=== PATIENT | female | born 1960 | race Caucasian/White ===

== ENCOUNTER 2023-01-10 23:25 | Emergency (ER) | payer OTHER, SELFPAY ==
[2023-01-10 23:32] VITALS: BP 132/62; PULSE 81; RESP 30; TEMP 36.6; O2SAT 99; BMI 64.0
[2023-01-10 23:33] VITALS: BP 132/62
--- NOTE | 2023-01-10 23:35 | ED_ITS ---
HPI - General Adult General Chief complaint: Shortness of Breath/Dyspnea Stated complaint: SHORTNESS OF BREATH Time Seen by Provider: 01/10/23 23:35 Source: patient Mode of arrival: ambulance Limitations: no limitations History of Present Illness HPI narrative: Patient presents to emergency department complaining of shortness of breath. Patient states she's been short of breath for the last 3 days. She has history of asthma and chronic obstructive pulmonary disease has been using nebulized treatments at home with some relief. The patient uses CPAP at home. She has been using it. She is not taking any steroids currently. She is normally on 4 L nasal cannula at home. Her claim rep is at [facility]. Patient states she has a history of deep vein thrombosis and pulmonary embolisms. She had a [place] filter that was removed 3 weeks ago. Patient denies any lower extremity edema, or cramping. She is on xarelto. She has not missed any doses. denies any fever, chills. She denies any chest pain. He has not had to increase her oxygen via nasal cannula. she had a cough but nonproductive. Patient also has a history of congestive heart failure. Related Data Home Medications Medication Instructions Recorded Confirmed aripiprazole 5 mg tablet 5 mg PO DAILY 01/10/23 01/10/23 atorvastatin 80 mg tablet 40 mg PO DAILY 01/10/23 01/10/23 budesonide-formoterol HFA 80 2 puff inhalation Q12H 01/10/23 01/11/23 mcg-4.5 mcg/actuation aerosol inhaler (Symbicort) dulaglutide 3 mg/0.5 mL 3 mg subcut .weekly 01/10/23 01/11/23 subcutaneous pen injector ([facility]) furosemide 40 mg tablet 40 mg PO BID 01/10/23 01/11/23 insulin glargine 100 unit/mL (3 50 unit subcut BID 01/10/23 01/11/23 mL) subcutaneous pen (Lantus Solostar U-100 Insulin) insulin lispro 100 unit/mL subcut 01/10/23 subcutaneous pen (Humalog KwikPen (U-100) Insulin) levothyroxine 100 mcg tablet 100 mcg PO DAILY 01/10/23 01/11/23 losartan 25 mg tablet 25 mg PO DAILY 01/10/23 01/10/23 metolazone 5 mg tablet 5 mg PO DAILY 01/10/23 01/11/23 metoprolol succinate 100 mg 100 mg PO Q12H 01/10/23 01/11/23 tablet,extended release 24 hr pantoprazole 40 mg tablet,delayed 40 mg PO DAILY 01/10/23 01/11/23 release potassium chloride 20 mEq 80 meq PO BID 01/10/23 01/11/23 tablet,extended release(part/cryst) (Klor-Con M) pregabalin 50 mg capsule 50 mg PO BID 01/10/23 01/11/23 rivaroxaban 20 mg tablet (Xarelto) 20 mg PO DAILY 01/10/23 01/10/23 spironolactone 25 mg tablet 25 mg PO DAILY 01/10/23 01/11/23 tramadol 50 mg tablet 50 mg PO BEDTIME PRN pain 01/10/23 01/11/23 venlafaxine 150 mg 150 mg PO DAILY 01/10/23 01/10/23 capsule,extended release 24 hr Previous Rx's Medication Instructions Recorded levofloxacin 750 mg tablet 750 mg PO DAILY 7 days #7 tabs 01/11/23 prednisone 50 mg tablet 50 mg PO DAILY 5 days #5 tabs 01/11/23 Allergies Allergy/AdvReac Type Severity Reaction Status Date / Time metformin Allergy Unknown Verified 01/10/23 23:35 nifedipine [From Procardia] Allergy Unknown Verified 01/10/23 23:35 red dye Allergy Unknown Verified 01/10/23 23:35 Review of Systems ROS Status of ROS 10 or more systems reviewed and unremarkable except as noted in history and below [facility] Social History Smoking status: Never smoker Exam Narrative Exam Narrative: Nurses notes and vital signs reviewed and patient is hypoxic. Oxygen saturation 74 percent on 4 L nasal cannula on reevaluation. General: Nontoxic, In mild respiratory distress. Skin: Warm, dry, no pallor noted. perioral cyanosis, no Rash Head: Normocephalic, atraumatic. Neck: Supple, non-tender. Eye: Pupils are equal, round and EOMI. No scleral icterus. Ears, Nose, Mouth, and Throat: TM clear, no posterior oropharynx erythema or nasal mucosal hypertrophy, uvula is mid-line Oral mucosa is moist Cardiovascular: paced rhythm without murmur, gallop or rub. Respiratory: mild respiratory distress. Lungs Lateral diffuse rhonchi and expiratory wheezes. Chest Wall: no tenderness Back: No midline thoracic or lumbar vertebral tenderness. No CVA tenderness Musculoskeletal: normal ROM, no calf or popliteal tenderness, no lower extremity edema/swelling GI: Obese, Abdomen is soft, non-distended. Normal bowel sounds. No masses appreciated. No tenderness to palpation. No rebound, guarding, or rigidity noted. Neurological: A&O x4. No cranial nerve dysfunction observed. No truncal ataxia. Moves all extremities. Sensation intact. Psychiatric: Cooperative and interactive. anxious Constitutional Vital Signs, click to edit/add: Last Vital Signs Temp 98 F 01/10/23 23:32 Pulse 91 H 01/11/23 05:53 Resp 44 H 01/11/23 05:53 BP 140/82 H 01/11/23 06:05 Pulse Ox 95 01/11/23 05:53 O2 Del Method BIPAP 01/11/23 06:23 O2 Flow Rate 5 01/11/23 03:58 FiO2 100 01/11/23 05:53 Course Vital Signs Vital signs: Vital Signs Temperature 98 F 01/10/23 23:32 Pulse Rate 81 01/10/23 23:32 Respiratory Rate 30 H 01/10/23 23:32 Blood Pressure 132/62 H 01/10/23 23:32 Pulse Oximetry 99 01/10/23 23:32 Oxygen Delivery Method Nasal Cannula 01/10/23 23:32 Oxygen Delivery Flow Rate 4 01/10/23 23:32 Temperature 98 F 01/10/23 23:32 Pulse Rate 91 H 01/11/23 05:53 Respiratory Rate 44 H 01/11/23 05:53 Blood Pressure 140/82 H 01/11/23 06:05 Pulse Oximetry 95 01/11/23 05:53 Oxygen Delivery Method BIPAP 01/11/23 06:23 Oxygen Delivery Flow Rate 5 01/11/23 03:58 Fraction of Inspired Oxygen 100 01/11/23 05:53 Medical Decision Making MDM Narrative Medical decision making narrative: Patient was initially seen and evaluated by me. The patient was doing well on 4 L nasal cannula. She did not have any respiratory distress and was not cyanotic. The patient hadn't was given Solu-Medrol, a DuoNeb treatment and Levaquin IV. She was also given 2 g of magnesium. She rested she felt better and she did not want to be hospitalized. I discussed with the patient to stay in the hospital for IV antibiotics and steroids and she declined she states she felt so much better. As the patient was being wheeled to the car still on 4 L nasal cannula she decompensated when she was getting into her car she became cyanotic, anxious having respiratory distress they brought her back to the emergency department immediately her oxygen saturation was 74 percent. She was immediately placed on BiPAP. She felt better. ABG was obtained. I discussed intubation with the patient and she is asked if we could increase prolonged because she is not opposed to it 100 percent, but she wants to delay it as much as possible. Dmoinik worthington was given 1 mg of Ativan IV and we attempted to have the patient do a CTA because of her history of pulmonary embolism and she was not tolerating it as she will become very dyspneic and anxious any time you lay her flat. The patient was given 1 mg of Bumex. She had a plain x-ray which showed diffuse bilateral infiltrates versus pulmonary edema. The patient lactic acid was elevated. She was started on the sepsis protocol of normal saline at 30 ml/kilogram bolus, vancomycin and Zosyn. A repat ABG was obtained one hour after the patient was started on BiPAP with the settings 12 and 8 and FIO2- 90 percent. The patient's pH improved to 7.2, but it appeared to be a mixed gas. Patient's oxygen saturation reads best on her earlobe the patient has Raynauds. her oxygen sat on bipap remains 98% The patient was discussed with Dr. Stewart who advised that Dr. Casarez at the [facility] is out of town and she would not feel comfortable having to intubate the patient and managed event. She asked that we keep the patient in the emergency department at least another hour and repeat the ABG and if it continues to improve that she will feel more comfortable admitting the patient here. The patient is signed out at the end of my shift to Dr. Brown awaiting ABG repeat in one hour and discussing the patient with Dr. Stewart. Lab Data Lab results reviewed: Yes I reviewed the patient's lab results Labs: Lab Results 01/10/23 01/11/23 01/11/23 Range/Units 23:46 05:02 05:54 WBC 11.7 H (4.0-11.0) 10^3/uL RBC 4.14 L (4.20-5.40) 10^6/uL Hgb 10.1 L (12.0-16.0) g/dL Hct 33.7 L (36.0-48.0) % MCV 81.4 (81.0-99.0) fL MCH 24.4 L (26.7-34.0) pg MCHC 30.0 (29.9-35.2) g/dL RDW 17.5 H (11.0-15.0) % Plt Count 251 (150-450) 10^3/uL MPV 11.9 (9.5-13.5) fL Neut % (Auto) 55.0 (43.0-75.0) % Lymph % (Auto) 34.6 (20.5-60.0) % [place] % (Auto) 7.9 (1.7-12.0) % Eos % (Auto) 1.5 (0.9-7.0) % Baso % (Auto) 0.4 (0.2-2.0) % Neut # (Auto) 6.5 (1.4-6.5) 10^3/uL Lymph # (Auto) 4.1 H (1.2-3.8) 10^3/uL [place] # (Auto) 0.9 H (0.3-0.8) 10^3/uL Eos # (Auto) 0.2 (0.0-0.7) 10^3/uL Baso # (Auto) 0.1 (0.0-0.1) 10^3/uL Abs Immat Gran (auto) 0.07 H (0.00-0.03) 10^3/uL Imm/Tot Granulo (auto) 0.6 H (0.0-0.5) % PT (9.0-11.6) sec INR APTT (22.3-36.2) sec Puncture Site R radial ABG pH 7.025 L* (7.350-7.450) ABG pCO2 49.8 H (35.0-45.0) mmHg ABG pO2 314.0 H (80.0-100.0) mmHg ABG HCO3 13.0 L (22.0-26.0) mmol/L ABG O2 Saturation 99.8 % ABG Base Excess -17.9 L (-2.0-2.0) mmol/L Bryan Test Positive (POSITIVE) FiO2 100 % BiPAP 16/8 Sodium 141 (136-145) mmol/L Potassium 3.9 (3.5-5.1) mmol/L Chloride 106 (98-107) mmol/L Carbon Dioxide 25.9 (21.0-32.0) mmol/L Anion Gap 13.0 BUN 23.0 H (7.0-18.0) mg/dL Creatinine 1.11 H (0.55-1.02) mg/dL Est GFR ( Amer) >60 (>=60) Est GFR (Non-Af Amer) 50 L (>=60) BUN/Creatinine Ratio 20.7 Glucose 218 H (74-106) mg/dL Lactate 7.9 H* (0.4-2.0) mmol/L Calcium 8.6 (8.5-10.1) mg/dL Troponin I High Sens 9.1 (4.0-51.3) pg/mL NT-Pro-B Natriuret Pep 804.0 (<=900.0) pg/mL Adenovirus (PCR) (NOT DETECTE) C. pneumoniae DNA (PCR) (NOT DETECTE) Coronavirus Type OC43 (NOT DETECTE) Coronavirus Type HKU1 (NOT DETECTE) Coronavirus Type 229E (NOT DETECTE) Coronavirus Type NL63 (NOT DETECTE) Human Metapneumovir PCR (NOT DETECTE) M. pneumoniae (PCR) (NOT DETECTE) Parainfluenza PCR (NOT DETECTE) Parainfluenza 2 (PCR) (NOT DETECTE) Parainfluenza 3 (PCR) (NOT DETECTE) Parainfluenza 4 (PCR) (NOT DETECTE) RSV (RT-PCR) (NOT DETECTE) Entero/Rhino (PCR) (NOT DETECTE) SARS-CoV-2 (PCR) (NOT DETECTE) Bordetella pertussis (PCR) (NOT DETECTE) B parapertussis DNA PCR (NOT DETECTE) Influenza Type A (PCR) (NOT DETECTE) Influenza Type B (PCR) (NOT DETECTE) 01/11/23 01/11/23 01/11/23 Range/Units 06:15 06:39 06:55 WBC (4.0-11.0) 10^3/uL RBC (4.20-5.40) 10^6/uL Hgb (12.0-16.0) g/dL Hct (36.0-48.0) % MCV (81.0-99.0) fL MCH (26.7-34.0) pg MCHC (29.9-35.2) g/dL RDW (11.0-15.0) % Plt Count (150-450) 10^3/uL MPV (9.5-13.5) fL Neut % (Auto) (43.0-75.0) % Lymph % (Auto) (20.5-60.0) % [place] % (Auto) (1.7-12.0) % Eos % (Auto) (0.9-7.0) % Baso % (Auto) (0.2-2.0) % Neut # (Auto) (1.4-6.5) 10^3/uL Lymph # (Auto) (1.2-3.8) 10^3/uL [place] # (Auto) (0.3-0.8) 10^3/uL Eos # (Auto) (0.0-0.7) 10^3/uL Baso # (Auto) (0.0-0.1) 10^3/uL Abs Immat Gran (auto) (0.00-0.03) 10^3/uL Imm/Tot Granulo (auto) (0.0-0.5) % PT 12.1 H (9.0-11.6) sec INR 1.15 APTT 33.9 (22.3-36.2) sec Puncture Site Lr ABG pH 7.237 L* (7.350-7.450) ABG pCO2 46.7 H (35.0-45.0) mmHg ABG pO2 48.6 L (80.0-100.0) mmHg ABG HCO3 19.8 L (22.0-26.0) mmol/L ABG O2 Saturation 77.7 % ABG Base Excess -7.6 L (-2.0-2.0) mmol/L Bryan Test Positive (POSITIVE) FiO2 90 % BiPAP 16/8 Sodium (136-145) mmol/L Potassium (3.5-5.1) mmol/L Chloride (98-107) mmol/L Carbon Dioxide (21.0-32.0) mmol/L Anion Gap BUN (7.0-18.0) mg/dL Creatinine (0.55-1.02) mg/dL Est GFR ( Amer) (>=60) Est GFR (Non-Af Amer) (>=60) BUN/Creatinine Ratio Glucose (74-106) mg/dL Lactate 5.7 H* (0.4-2.0) mmol/L Calcium (8.5-10.1) mg/dL Troponin I High Sens (4.0-51.3) pg/mL NT-Pro-B Natriuret Pep (<=900.0) pg/mL Adenovirus (PCR) Not detected (NOT DETECTE) C. pneumoniae DNA (PCR) Not detected (NOT DETECTE) Coronavirus Type OC43 Not detected (NOT DETECTE) Coronavirus Type HKU1 Not detected (NOT DETECTE) Coronavirus Type 229E Not detected (NOT DETECTE) Coronavirus Type NL63 Not detected (NOT DETECTE) Human Metapneumovir PCR Not detected (NOT DETECTE) M. pneumoniae (PCR) Not detected (NOT DETECTE) Parainfluenza PCR Not detected (NOT DETECTE) Parainfluenza 2 (PCR) Not detected (NOT DETECTE) Parainfluenza 3 (PCR) Not detected (NOT DETECTE) Parainfluenza 4 (PCR) Not detected (NOT DETECTE) RSV (RT-PCR) Not detected (NOT DETECTE) Entero/Rhino (PCR) Not detected (NOT DETECTE) SARS-CoV-2 (PCR) Not detected (NOT DETECTE) Bordetella pertussis (PCR) Not detected (NOT DETECTE) B parapertussis DNA PCR Not detected (NOT DETECTE) Influenza Type A (PCR) Not detected (NOT DETECTE) Influenza Type B (PCR) Not detected (NOT DETECTE) ECG Data Attestation: I personally reviewed and interpreted this ECG as follows: Interpretation: Paced rhythm no acute ischemic changes. Critical Care Time Critical Care Time Critical Care Time: Yes Total Critical Care Time: 60 Attestation: Critical Care Time: 60 minutes, critical care time is separate from any procedures that are performed. The following was considered in the determination of critical care but not limited to the level medical decision-making, intensive cardiac and/or respiratory monitor, frequent vital sign monitoring, evaluation of laboratory studies, evaluation of a radiographic studies, oxygen monitoring and constant monitoring. Discharge Plan Discharge Chief Complaint: Shortness of Breath/Dyspnea Clinical Impression: COPD exacerbation, Respiratory failure, Sepsis Pneumonia Qualifiers: Laterality: bilateral Patient Disposition: Admitted As Inpatient Time of Disposition Decision: 04:12 Condition: Good
--- NOTE | 2023-01-10 23:41 | XR_ITS ---
The [address] [address] Patient Name: DARIAN PALACIOS MRN: [id number] date: 1960 Sex: F Assigned Patient Location: ER Current Patient Location: ER Accession/Order Number: [id number] Exam Date: 01/10/2023 23:59 Report Date: 01/11/2023 01:49 At the request of: CHARLIE CLEMONS Procedure: XR chest 1V XR chest 1V 01/10/2023 11:59 PM EDT CLINICAL INDICATION: Dyspnea COMPARISON: 04/16/2022 TECHNIQUE: Portable semiupright AP view of the chest. FINDINGS: Left subclavian approach AICD. Prior median sternotomy. Cardiac silhouette appears enlarged. No florid pulmonary interstitial edema. Increased density is seen involving the left mid to lower lung zone. No pneumothorax or definite pleural effusion. No displaced rib fractures. Osseous structures demonstrate degenerative changes. Soft tissues are grossly normal. XR/XR chest 1V IMPRESSION: Left mid to lower lung zone opacity concerning for pneumonia. Electronically authenticated by: PATRICIO SILVEIRA Date: 01/11/2023 01:49
--- NOTE | 2023-01-10 23:41 | ECG_ITS ---
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
[2023-01-10 23:59] LABS: Basophils Absolute Auto 0.1 10^3/uL (0.0-0.1); Basophils Percent Auto 0.4 % (0.2-2.0); Eosinophils Absolute Auto 0.2 10^3/uL (0.0-0.7); Eosinophils Percent Auto 1.5 % (0.9-7.0); Hematocrit 33.7 % (36.0-48.0); Hemoglobin 10.1 g/dL (12.0-16.0); Immature Granulocytes Abs Auto 0.07 10^3/uL (0.00-0.03); Immature Granulocytes Pct Auto 0.6 % (0.0-0.5); Lymphocytes Absolute Auto 4.1 10^3/uL (1.2-3.8); Lymphocytes Percent Auto 34.6 % (20.5-60.0); Mean Corpuscular Hemoglobin 24.4 pg (26.7-34.0); Mean Corpuscular Volume 81.4 fL (81.0-99.0); Mean Platelet Volume 11.9 fL (9.5-13.5); Monocytes Absolute Auto 0.9 10^3/uL (0.3-0.8); Monocytes Percent Auto 7.9 % (1.7-12.0); Neutrophils Absolute Auto 6.5 10^3/uL (1.4-6.5); Platelet Count 251 10^3/uL (150-450); Red Blood Count 4.14 10^6/uL (4.20-5.40); Red Cell Distribution Width 17.5 % (11.0-15.0); White Blood Count 11.7 10^3/uL (4.0-11.0)
[2023-01-11] VITALS (33 sets, daily range): BP systolic 110–190; BP diastolic 53–128; PULSE 80–115; RESP 14–44; O2SAT 90–98
[2023-01-11] MEDS: MAGNESIUM SULFATE IN WATER 50 ML IV (00:06)
[2023-01-11 00:07] LABS: BUN Creatinine Ratio 20.7; Calcium 8.6 mg/dL (8.5-10.1); Carbon Dioxide 25.9 mmol/L (21.0-32.0); Chloride 106 mmol/L (98-107); Estimated GFR (African America >60 (>=60); Estimated GFR (Non-African Ame 50 (>=60); Glucose 218 mg/dL (74-106); Potassium 3.9 mmol/L (3.5-5.1); Sodium 141 mmol/L (136-145)
--- NOTE | 2023-01-11 00:23 | PC.NURSE ---
IV PRESENT ON ADMISSION TO ED. STARTED BY EMS
--- NOTE | 2023-01-11 01:34 | PC.NURSE ---
Pt requested to sit on the edge of the bed to improve breathing. One siderail of the bed is down with in the room. Call light in hand and informed on how to use it if needed.
[2023-01-11] MEDS: LEVOFLOXACIN IN DEXTROSE 5 % 750 MG/150 ML IV.SOLN 100 MG IV (02:40)
[2023-01-11] MEDS: IPRATROPIUM BROMIDE 0.5 MG/2.5 ML VIAL.NEB IH (03:51)
--- NOTE | 2023-01-11 05:07 | PC.NURSE ---
PATIENT WAS PREVIOUSLY DISCHARGED. THIS RN TOOK PATIENT OUT TO HER CAR WHERE WAS WAITING. SHE WAS ON 5LPM PER NASAL CANULA ON THE WAY OUT. ONCE TO THE CAR, SHE WAS SWITCHED TO HER PERSONAL PORTABLE OXYGEN ON 5 LPM. PATIENT STOOD AND TRANSFERRED INTO HER CAR. SHE WAS TAKING FAST, SHALLOW BREATHS AND WAS NOT ABLE TO CATCH HER BREATH. THIS RN TRIED TO TALK HER THROUGH THIS EPISODE, SHE CONTINUED TO NOT BE ABLE TO CATCH HER BREATH AND STARTED TO BECOME CYANOTIC. SHE WAS TRANSFERRED BACK INTO HER WHEELCHAIR AND BROUGHT BACK INSIDE. SHE WAS INITIALLY TAKEN TO ROOM 7 AND STARTED ON OXYGEN VIA NON REBREATHER MASK. IV ACCESS WAS INITIATED AGAIN AND RESPIRATORY CAME TO THE ROOM. AEROSOL WAS GIVEN. PATIENT THEN MOVED TO ROOM 6, STARTED ON BIPAP, MEDICATED WITH BUMEX AND SOLUMEDROL AND ABGS WERE DONE. PATIENT IS CURRENTLY AY 99% ON BIPAP. DR CLEMONS WAS PRESENT DURING THIS TIME AND ORDERED A CTA. RADIOLOGY AWARE OF ORDER.
[2023-01-11] MEDS: BUMETANIDE 1 MG/4 ML VIAL IVP (05:10)
[2023-01-11] MEDS: METHYLPREDNISOLONE SOD SUCC PF 40 MG/ML VIAL IVP (05:10)
[2023-01-11 05:13] LABS: ABG PCO2 49.8 mmHg (35.0-45.0); pH ABG 7.025 (7.350-7.450)
[2023-01-11 05:14] LABS: Allen Test POSITIVE (POSITIVE); Base Excess ABG -17.9 mmol/L (-2.0-2.0); Fractionated Inspired Oxygen 100 %; O2 Mode BI PAP; Oxygen Saturation ABG 99.8 %; Puncture Site R RADIAL
[2023-01-11 05:15] LABS: BIPAP Pressure 16/8
[2023-01-11] MEDS: ALBUTEROL SULFATE 2.5 MG/3 ML VIAL NEB (05:51)
[2023-01-11] MEDS: IPRATROPIUM/ALBUTEROL SULFATE 3 ML AMPUL.NEB IH (05:53)
--- NOTE | 2023-01-11 05:55 | XR_ITS ---
The [address] [address] Patient Name: DARIAN PALACIOS MRN: [id number] date: 1960 Sex: F Assigned Patient Location: ER Current Patient Location: ER Accession/Order Number: [id number] Exam Date: 01/11/2023 06:05 Report Date: 01/11/2023 06:25 At the request of: CHARLIE CLEMONS Procedure: XR chest 1V EXAM: XR chest 1V HISTORY: Shortness of breath. COMPARISON: 01/11/2023. TECHNIQUE: AP erect portable chest radiograph performed. FINDINGS: Stable median sternotomy wires. The examination is underpenetrated and the pacemaker leads are not adequately visualized on this examination. The pulmonary vasculature appears congested and there are worsened bilateral perihilar and basilar infiltrates which in the right clinical setting can be associated with congestive heart failure. Correlation with clinical findings recommended to exclude an underlying pneumonia. There is no pneumothorax or osseous abnormality. XR/XR chest 1V IMPRESSION: The pulmonary vasculature appears congested and there are worsened bilateral perihilar and basilar infiltrates which in the right clinical setting can be associated with congestive heart failure with pulmonary edema. Correlation with clinical findings recommended to exclude an underlying pneumonia. Electronically authenticated by: ROB SEXTON Date: 01/11/2023 06:25
[2023-01-11 06:17] LABS: Troponin I High Sensitivity 9.1 pg/mL (4.0-51.3)
[2023-01-11 06:18] LABS: Adenovirus NOT DETECTED (NOT DETECTE); Bordetella parapertussis NOT DETECTED (NOT DETECTE); Coronavirus 229E NOT DETECTED (NOT DETECTE); Coronavirus HKU1 NOT DETECTED (NOT DETECTE); Coronavirus NL63 NOT DETECTED (NOT DETECTE); Coronavirus OC43 NOT DETECTED (NOT DETECTE); Human Metapneumovirus NOT DETECTED (NOT DETECTE); Human Rhinovirus/Enterovirus NOT DETECTED (NOT DETECTE); Influenza A NOT DETECTED (NOT DETECTE); Influenza B NOT DETECTED (NOT DETECTE); Mycoplasma pneumoniae NOT DETECTED (NOT DETECTE); Parainfluenza Virus 1 NOT DETECTED (NOT DETECTE); Parainfluenza Virus 2 NOT DETECTED (NOT DETECTE); Parainfluenza Virus 3 NOT DETECTED (NOT DETECTE); Parainfluenza Virus 4 NOT DETECTED (NOT DETECTE); Respiratory Syncytial Virus NOT DETECTED (NOT DETECTE); SARS-CoV-2 NOT DETECTED (NOT DETECTE)
[2023-01-11] MEDS: LORAZEPAM 2 MG/ML 1 ML VIAL 1 MG IV (06:19)
[2023-01-11 06:25] LABS: Lactate/Lactic Acid 7.9 mmol/L (0.4-2.0)
[2023-01-11] MEDS: 0.9 % SODIUM CHLORIDE 1,000 ML 999 ML (06:47)
[2023-01-11 06:58] LABS: ABG PCO2 46.7 mmHg (35.0-45.0); Allen Test POSITIVE (POSITIVE); Base Excess ABG -7.6 mmol/L (-2.0-2.0); HCO3 ABG 19.8 mmol/L (22.0-26.0); Oxygen Saturation ABG 77.7 %; PO2 ABG 48.6 mmHg (80.0-100.0)
[2023-01-11 06:59] LABS: BIPAP Pressure 16/8; Fractionated Inspired Oxygen 90 %; O2 Mode BIPAP; Puncture Site LR; Rate 16
[2023-01-11 07:00] LABS: pH ABG 7.237 (7.350-7.450)
[2023-01-11] MEDS: VANCOMYCIN HCL 2,000 MG in 0.9 % SODIUM CHLORIDE 500 ML 250 MG IV (07:09)
[2023-01-11 07:11] LABS: INR 1.15; Lactate/Lactic Acid 5.7 mmol/L (0.4-2.0); Partial Thromboplastin Time 33.9 sec (22.3-36.2); Prothrombin Time 12.1 sec (9.0-11.6)
[2023-01-11] MEDS: PIPERACILLIN SODIUM/TAZOBACTAM 4.5 GM in 0.9 % SODIUM CHLORIDE 50 ML IV (07:11)
[2023-01-11] MEDS: LORAZEPAM 2 MG/ML 1 ML VIAL IV (08:10)
[2023-01-11] MEDS: 0.9 % SODIUM CHLORIDE 1,503 ML 501 ML IV (08:46)
[2023-01-11 09:09] LABS: ABG PCO2 51.2 mmHg (35.0-45.0); HCO3 ABG 20.5 mmol/L (22.0-26.0); PO2 ABG 63.5 mmHg (80.0-100.0)
[2023-01-11 09:10] LABS: Allen Test POSITIVE (POSITIVE); Base Excess ABG -7.4 mmol/L (-2.0-2.0); Fractionated Inspired Oxygen 100 %; Oxygen Saturation ABG 88.2 %
[2023-01-11 09:11] LABS: BIPAP Pressure 1618
--- NOTE | 2023-01-11 09:12 | PM.PN ---
Progress Note: Subjective Subjective Interval history: was asked to admit, patient seen in the ER with distress on BIPAP, Repeat ABG was worse. Due to deterioration, worsening respiratory status, large habitus/morbid obesity, discussed with ER physician that best for Intubation/ventilation and the need to transfer patient to higher level of care. Her pulmonary doctor is in [place] so recommend transfer there. The decision was made to not keep her at [place] due to limited resources and no pulmonary CC today. She will not be admitted to my hospital service at this time. Time spent discussion and review of patient 20 minutes. Exam Constitutional Vital Signs, click to edit/add: Last Vital Signs Temp 98 F 01/10/23 23:32 Pulse 91 H 01/11/23 05:53 Resp 44 H 01/11/23 05:53 BP 133/99 H 01/11/23 08:41 Pulse Ox 95 01/11/23 05:53 O2 Del Method BIPAP 01/11/23 06:23 O2 Flow Rate 5 01/11/23 03:58 FiO2 100 01/11/23 05:53 Progress Note: Objective Labs Labs: Short CBC 01/10/23 Range/Units 23:46 WBC 11.7 H (4.0-11.0) 10^3/uL Hgb 10.1 L (12.0-16.0) g/dL Hct 33.7 L (36.0-48.0) % Plt Count 251 (150-450) 10^3/uL BMP 01/10/23 23:46 Sodium 141 Potassium 3.9 Chloride 106 Carbon Dioxide 25.9 BUN 23.0 H Creatinine 1.11 H Glucose 218 H Calcium 8.6
--- NOTE | 2023-01-11 09:31 | XR_ITS ---
The [address] [address] Patient Name: DARIAN PALACIOS MRN: [id number] date: 1960 Sex: F Assigned Patient Location: ED.MAIN Current Patient Location: ER Accession/Order Number: [id number] Exam Date: 01/11/2023 09:40 Report Date: 01/11/2023 10:05 At the request of: BRYNN LANTIGUA Procedure: XR chest 1V EXAMINATION: XR chest 1V HISTORY: POST INTUBATE COMPARISON: 04/13/2023 TECHNIQUE: Portable FINDINGS: LUNGS: Endotracheal tube projects over the distal trachea, the tip is difficult to ascertain in relation to the chaka likely is 1.9 cm above the chaka. Progression of marked diffuse bilateral parenchymal infiltrates obscuring the hemidiaphragms and heart borders. VASCULATURE: No increased pulmonary vasculature. PLEURA: No pneumothorax. Suspected pleural effusions CARDIAC: No cardiomegaly or cardiac silhouette abnormality. MEDIASTINUM: No visible mass or adenopathy. Median sternotomy wires. Left pacemaker BONES: No fracture or visible bone lesion. OTHER: Negative. XR/XR chest 1V IMPRESSION: Endotracheal tube tip likely 1.9 cm above the chaka Marked bilateral parenchymal infiltrates and pleural effusions, pulmonary edema and/or pneumonia Electronically authenticated by: CHACHA LOPES Date: 01/11/2023 10:05
--- NOTE | 2023-01-11 09:53 | XR_ITS ---
The [address] [address] Patient Name: DARIAN PALACIOS MRN: [id number] date: 1960 Sex: F Assigned Patient Location: ER Current Patient Location: ER Accession/Order Number: [id number] Exam Date: 01/11/2023 09:53 Report Date: 01/11/2023 10:11 At the request of: BRYNN MCCORMACK Procedure: XR chest 1V EXAMINATION: XR chest 1V HISTORY: SOB COMPARISON: Multiple prior exams TECHNIQUE: Portable performed at 958 FINDINGS: LUNGS: Endotracheal tube tip is 1.9 cm above the chaka. Marked diffuse bilateral parenchymal infiltrates partially obscuring the hemidiaphragms and heart borders, improved from the previous exam. VASCULATURE: No increased pulmonary vasculature. PLEURA: No pneumothorax, effusion, or pleural thickening. CARDIAC: No cardiomegaly or cardiac silhouette abnormality. Valve replacement MEDIASTINUM: No visible mass or adenopathy. Median sternotomy wires. Left pacemaker. BONES: No fracture or visible bone lesion. OTHER: Findings discussed with Dr. mccormack 10:09 AM. XR/XR chest 1V IMPRESSION: Endotracheal tube tip 1.9 cm above the chaka Diffuse bilateral parenchymal infiltrates, slightly improved. Pulmonary edema favored Electronically authenticated by: CHACHA LOPES Date: 01/11/2023 10:11
[2023-01-11 10:03] LABS: Vancomycin Trough <0.8 ug/mL (5.0-20.0)
[2023-01-11 10:18] LABS: Magnesium 2.5 mg/dL (1.8-2.4)
--- NOTE | 2023-01-11 10:21 | ED_ITS ---
HPI - General Adult General Chief complaint: Shortness of Breath/Dyspnea Stated complaint: SHORTNESS OF BREATH Time Seen by Provider: 01/10/23 23:35 Source: patient Mode of arrival: ambulance Limitations: no limitations History of Present Illness HPI narrative: Patient was transitioned to ak at [address] Meng. Patient has been admitted to the hospital to intensive care unit to Dr. Stewart. Patient was being transferred to the ICU, patient's BiPAP was taken off and placed on a nonrebreather for transfer. Patient quickly decompensated, increased respiratory rate, very anxious, became hypoxic and is not stable for transfer to the ICU. This happened at approximately 0800, please see nursing notes. Patient was given 2 mg of Ativan IV. A 2nd ABG was going to be drawn at 8:[address] Stewart, who is the admitting physician to the ICU, to have her come to see and reevaluate the patient to see if patient is appropriate to be admitted to the ICU at [facility]. Dr. Stewart came at bedside to see and evaluate the patient at approximately 8:20 AM. Patient ABG was going to be drawn. Patient appears becoming tired of breathing with increased respiratory rate in the 30s. Patient's oxygen level is still maintaining in the 70-80s. I placed a nasal trumpet and readjusted the BiPAP mask with Jenny TENA to help with oxygenation. Procedure note: nasal trumpet was placed to left naris by Dr. Mccormack. 28 [place] nasal trumpet was lubricated, place left nostril easily with no difficulty, no trauma, no bleeding. Patient tolerated procedure well. BiPAP was placed over the nasal trumpet because patient was keeping her mouth clamped. 0900 patient's ABG came back. Patient's pH remains 7.21, CO2 51, oxygen 63 percent, bicarbonate 20. Patient's oxygen is not improving or is the pH. I discussed with patient and at bedside several times about intubation because patient's oxygen status is not improving, her respiratory rate remains in the 30s, and patient is becoming tired. Patient was given IV Ativan 2 mg after we attempted to transfer her to the floor secondary to anxiety, difficulty breathing when she was not on the BiPAP mask. PT agrees to intubation with Katia TENA at bedside along with . Dr Stewart, anesthesiologist, came down to assist with intubation. Please see his procedure note. Patient was intubated with a glide scope. Patent had 8.0 ET tube that was placed, initially 22cm at the teeth. It has been since pulled back to 20 cm at the teeth. Patient had equal breath sounds bilateral, patient had a significant amount of pinkish, frothy sputum coming through the ET tube. Please see respiratory notes and Dr. Stewart anesthesiologist note. Patient was desatting, multiple times of in-line suction has been done to suction the fluid help improve oximetry level. We have called the [facility] where patient has been admitted before, I was never was able to speak to a [facility] Dr[facility] I been told there is significant amount of people waiting for intensive care beds, and we had no ETA at any time today. I then called [facility] at the request of , they have no beds available. I then called [facility] which patient had agreed to going to prior to intubation. 1000 I have spoken to the Emergency Room physician, Dr. Arzate.. He is accepting patient with transfer from Emergency Room to Emergency Room to [facility] from [place] [facility]. [facility] coming to [employer] this patient in transfer. 1030 patient case was discussed with 2 [facility] personnel transferring patient to [facility]. Patient was started on a nitro drip to help with diuresis along with giving IV Lasix And IV Vasotec. Patient was given IV 40 mg of Lasix, patient is given 0.625 mg of Vasotec IV. Patient has had multiple suctions from respiratory staff in-line suctioned through the ET tube. Patient has a OG and Bess catheter placed. Please see previous Emergency Room dictations. I have updated has been at bedside multiple times, he has been at bedside as well prior to patient being transferred. I will update the power of district attorney, daughter, Debi, after patient leaves at the request of the , Paulina. understands the patient is in critical condition. Patient is not had an episode of cardiopulmonary arrest yet. Patient knows that could be a possibility today, patient has significant and severe pulmonary edema. Multiple x-rays have been done, the last x-ray done at approximately 9:50 AM when patient was significantly hypoxic showed no pneumothorax, slightly improving edema but still has significant pulmonary edema. No obvious pulmonary effusions. No other signs of displacement of the ET tube. This was discussed with Dr. Lopes. Equipment has been looked at multiple times by respiratory staff, therefore patient has had manual bag valve mask for the past 1.5 hours if not greater because the ventilator was not able to adequately ventilate and perfused the patient. Patient's color has improved. Patient's oxygen is 89 percent at transfer, patient's respiratory rate is in the low 20s by respiratory staff. Patient's blood pressure has maintained, she has not needed any type of IV pressors; considering given Vasotec, Lasix, nitro drip and she is on propofol for sedation She has not had any extended periods of hypotension. Dr. Mccormack along with multiple nursing and respiratory staff radiology staff as spent 3 hours with one-to-one care with this patient from approximately 8 AM until 11 AM. Critical care time >85 minutes exclusive from separate billable procedures that were performed. The following was considered in the determination of critical care but not limited to the level of medical decision making, intensive cardiac and/or respiratory monitoring, frequent vital sign monitoring, evaluation of laboratory studies, evaluation of radiographic studies, oxygen monitoring, and constant monitoring and speaking to family at bedside. Patient will be transferred in critical condition To [facility]. Patient has 3 IVs, central line was not needed at this time. I did speak to patient's daughter, power of district attorney, Paulina, who lives in [place]. She was very thankful for the throat conversation, explaining everything, support, and she will most likely be getting an appointment coming up to see her mother today or tomorrow. She had no questions, understood patient's critical condition was very thankful for all the Care provided to her mother at [facility] Related Data Home Medications Medication Instructions Recorded Confirmed aripiprazole 5 mg tablet 5 mg PO DAILY 01/10/23 01/10/23 atorvastatin 80 mg tablet 40 mg PO DAILY 01/10/23 01/10/23 budesonide-formoterol HFA 80 2 puff inhalation Q12H 01/10/23 01/11/23 mcg-4.5 mcg/actuation aerosol inhaler (Symbicort) dulaglutide 3 mg/0.5 mL 3 mg subcut .weekly 01/10/23 01/11/23 subcutaneous pen injector (Trulicity) furosemide 40 mg tablet 40 mg PO BID 01/10/23 01/11/23 insulin glargine 100 unit/mL (3 50 unit subcut BID 01/10/23 01/11/23 mL) subcutaneous pen (Lantus Solostar U-100 Insulin) insulin lispro 100 unit/mL subcut 01/10/23 subcutaneous pen (Humalog KwikPen (U-100) Insulin) levothyroxine 100 mcg tablet 100 mcg PO DAILY 01/10/23 01/11/23 losartan 25 mg tablet 25 mg PO DAILY 01/10/23 01/10/23 metolazone 5 mg tablet 5 mg PO DAILY 01/10/23 01/11/23 metoprolol succinate 100 mg 100 mg PO Q12H 01/10/23 01/11/23 tablet,extended release 24 hr pantoprazole 40 mg tablet,delayed 40 mg PO DAILY 01/10/23 01/11/23 release potassium chloride 20 mEq 80 meq PO BID 01/10/23 01/11/23 tablet,extended release(part/cryst) (Klor-Con M) pregabalin 50 mg capsule 50 mg PO BID 01/10/23 01/11/23 rivaroxaban 20 mg tablet (Xarelto) 20 mg PO DAILY 01/10/23 01/10/23 spironolactone 25 mg tablet 25 mg PO DAILY 01/10/23 01/11/23 tramadol 50 mg tablet 50 mg PO BEDTIME PRN pain 01/10/23 01/11/23 venlafaxine 150 mg 150 mg PO DAILY 01/10/23 01/10/23 capsule,extended release 24 hr Previous Rx's Medication Instructions Recorded levofloxacin 750 mg tablet 750 mg PO DAILY 7 days #7 tabs 01/11/23 prednisone 50 mg tablet 50 mg PO DAILY 5 days #5 tabs 01/11/23 Allergies Allergy/AdvReac Type Severity Reaction Status Date / Time metformin Allergy Unknown Verified 01/10/23 23:35 nifedipine [From Procardia] Allergy Unknown Verified 01/10/23 23:35 red dye Allergy Unknown Verified 01/10/23 23:35 PFSH PFSH Social History Smoking status: Never smoker Exam Constitutional Vital Signs, click to edit/add: Last Vital Signs Temp 98 F 01/10/23 23:32 Pulse 91 H 01/11/23 05:53 Resp 44 H 01/11/23 05:53 BP 137/75 H 01/11/23 10:55 Pulse Ox 95 01/11/23 05:53 O2 Del Method BIPAP 01/11/23 06:23 O2 Flow Rate 5 01/11/23 03:58 FiO2 100 01/11/23 05:53 Course Vital Signs Vital signs: Vital Signs Temperature 98 F 01/10/23 23:32 Pulse Rate 81 01/10/23 23:32 Respiratory Rate 30 H 01/10/23 23:32 Blood Pressure 132/62 H 01/10/23 23:32 Pulse Oximetry 99 01/10/23 23:32 Oxygen Delivery Method Nasal Cannula 01/10/23 23:32 Oxygen Delivery Flow Rate 4 01/10/23 23:32 Temperature 98 F 01/10/23 23:32 Pulse Rate 91 H 01/11/23 05:53 Respiratory Rate 44 H 01/11/23 05:53 Blood Pressure 137/75 H 01/11/23 10:55 Pulse Oximetry 95 01/11/23 05:53 Oxygen Delivery Method BIPAP 01/11/23 06:23 Oxygen Delivery Flow Rate 5 01/11/23 03:58 Fraction of Inspired Oxygen 100 01/11/23 05:53 Medical Decision Making Lab Data Lab results reviewed: Yes I reviewed the patient's lab results Labs: Lab Results 01/10/23 01/11/23 01/11/23 Range/Units 23:46 05:02 05:54 WBC 11.7 H (4.0-11.0) 10^3/uL RBC 4.14 L (4.20-5.40) 10^6/uL Hgb 10.1 L (12.0-16.0) g/dL Hct 33.7 L (36.0-48.0) % MCV 81.4 (81.0-99.0) fL MCH 24.4 L (26.7-34.0) pg MCHC 30.0 (29.9-35.2) g/dL RDW 17.5 H (11.0-15.0) % Plt Count 251 (150-450) 10^3/uL MPV 11.9 (9.5-13.5) fL Neut % (Auto) 55.0 (43.0-75.0) % Lymph % (Auto) 34.6 (20.5-60.0) % [place] % (Auto) 7.9 (1.7-12.0) % Eos % (Auto) 1.5 (0.9-7.0) % Baso % (Auto) 0.4 (0.2-2.0) % Neut # (Auto) 6.5 (1.4-6.5) 10^3/uL Lymph # (Auto) 4.1 H (1.2-3.8) 10^3/uL Tarrant # (Auto) 0.9 H (0.3-0.8) 10^3/uL Eos # (Auto) 0.2 (0.0-0.7) 10^3/uL Baso # (Auto) 0.1 (0.0-0.1) 10^3/uL Abs Immat Gran (auto) 0.07 H (0.00-0.03) 10^3/uL Imm/Tot Granulo (auto) 0.6 H (0.0-0.5) % PT (9.0-11.6) sec INR APTT (22.3-36.2) sec Puncture Site R radial ABG pH 7.025 L* (7.350-7.450) ABG pCO2 49.8 H (35.0-45.0) mmHg ABG pO2 314.0 H (80.0-100.0) mmHg ABG HCO3 13.0 L (22.0-26.0) mmol/L ABG O2 Saturation 99.8 % ABG Base Excess -17.9 L (-2.0-2.0) mmol/L Bryan Test Positive (POSITIVE) FiO2 100 % BiPAP 16/8 Sodium 141 (136-145) mmol/L Potassium 3.9 (3.5-5.1) mmol/L Chloride 106 (98-107) mmol/L Carbon Dioxide 25.9 (21.0-32.0) mmol/L Anion Gap 13.0 BUN 23.0 H (7.0-18.0) mg/dL Creatinine 1.11 H (0.55-1.02) mg/dL Est GFR ( Amer) >60 (>=60) Est GFR (Non-Af Amer) 50 L (>=60) BUN/Creatinine Ratio 20.7 Glucose 218 H (74-106) mg/dL Lactate 7.9 H* (0.4-2.0) mmol/L Calcium 8.6 (8.5-10.1) mg/dL Magnesium (1.8-2.4) mg/dL Troponin I High Sens 9.1 (4.0-51.3) pg/mL NT-Pro-B Natriuret Pep 804.0 (<=900.0) pg/mL Vancomycin Trough (5.0-20.0) ug/mL Adenovirus (PCR) (NOT DETECTE) C. pneumoniae DNA (PCR) (NOT DETECTE) Coronavirus Type OC43 (NOT DETECTE) Coronavirus Type HKU1 (NOT DETECTE) Coronavirus Type 229E (NOT DETECTE) Coronavirus Type NL63 (NOT DETECTE) Human Metapneumovir PCR (NOT DETECTE) M. pneumoniae (PCR) (NOT DETECTE) Parainfluenza PCR (NOT DETECTE) Parainfluenza 2 (PCR) (NOT DETECTE) Parainfluenza 3 (PCR) (NOT DETECTE) Parainfluenza 4 (PCR) (NOT DETECTE) RSV (RT-PCR) (NOT DETECTE) Entero/Rhino (PCR) (NOT DETECTE) SARS-CoV-2 (PCR) (NOT DETECTE) Bordetella pertussis (PCR) (NOT DETECTE) B parapertussis DNA PCR (NOT DETECTE) Influenza Type A (PCR) (NOT DETECTE) Influenza Type B (PCR) (NOT DETECTE) 01/11/23 01/11/23 01/11/23 Range/Units 06:15 06:39 06:55 WBC (4.0-11.0) 10^3/uL RBC (4.20-5.40) 10^6/uL Hgb (12.0-16.0) g/dL Hct (36.0-48.0) % MCV (81.0-99.0) fL MCH (26.7-34.0) pg MCHC (29.9-35.2) g/dL RDW (11.0-15.0) % Plt Count (150-450) 10^3/uL MPV (9.5-13.5) fL Neut % (Auto) (43.0-75.0) % Lymph % (Auto) (20.5-60.0) % Tarrant % (Auto) (1.7-12.0) % Eos % (Auto) (0.9-7.0) % Baso % (Auto) (0.2-2.0) % Neut # (Auto) (1.4-6.5) 10^3/uL Lymph # (Auto) (1.2-3.8) 10^3/uL Tarrant # (Auto) (0.3-0.8) 10^3/uL Eos # (Auto) (0.0-0.7) 10^3/uL Baso # (Auto) (0.0-0.1) 10^3/uL Abs Immat Gran (auto) (0.00-0.03) 10^3/uL Imm/Tot Granulo (auto) (0.0-0.5) % PT 12.1 H (9.0-11.6) sec INR 1.15 APTT 33.9 (22.3-36.2) sec Puncture Site Lr ABG pH 7.237 L* (7.350-7.450) ABG pCO2 46.7 H (35.0-45.0) mmHg ABG pO2 48.6 L (80.0-100.0) mmHg ABG HCO3 19.8 L (22.0-26.0) mmol/L ABG O2 Saturation 77.7 % ABG Base Excess -7.6 L (-2.0-2.0) mmol/L Bryan Test Positive (POSITIVE) FiO2 90 % BiPAP 16/8 Sodium (136-145) mmol/L Potassium (3.5-5.1) mmol/L Chloride (98-107) mmol/L Carbon Dioxide (21.0-32.0) mmol/L Anion Gap BUN (7.0-18.0) mg/dL Creatinine (0.55-1.02) mg/dL Est GFR ( Amer) (>=60) Est GFR (Non-Af Amer) (>=60) BUN/Creatinine Ratio Glucose (74-106) mg/dL Lactate 5.7 H* (0.4-2.0) mmol/L Calcium (8.5-10.1) mg/dL Magnesium (1.8-2.4) mg/dL Troponin I High Sens (4.0-51.3) pg/mL NT-Pro-B Natriuret Pep (<=900.0) pg/mL Vancomycin Trough <0.8 L (5.0-20.0) ug/mL Adenovirus (PCR) Not detected (NOT DETECTE) C. pneumoniae DNA (PCR) Not detected (NOT DETECTE) Coronavirus Type OC43 Not detected (NOT DETECTE) Coronavirus Type HKU1 Not detected (NOT DETECTE) Coronavirus Type 229E Not detected (NOT DETECTE) Coronavirus Type NL63 Not detected (NOT DETECTE) Human Metapneumovir PCR Not detected (NOT DETECTE) M. pneumoniae (PCR) Not detected (NOT DETECTE) Parainfluenza PCR Not detected (NOT DETECTE) Parainfluenza 2 (PCR) Not detected (NOT DETECTE) Parainfluenza 3 (PCR) Not detected (NOT DETECTE) Parainfluenza 4 (PCR) Not detected (NOT DETECTE) RSV (RT-PCR) Not detected (NOT DETECTE) Entero/Rhino (PCR) Not detected (NOT DETECTE) SARS-CoV-2 (PCR) Not detected (NOT DETECTE) Bordetella pertussis (PCR) Not detected (NOT DETECTE) B parapertussis DNA PCR Not detected (NOT DETECTE) Influenza Type A (PCR) Not detected (NOT DETECTE) Influenza Type B (PCR) Not detected (NOT DETECTE) 01/11/23 01/11/23 Range/Units 09:00 09:55 WBC (4.0-11.0) 10^3/uL RBC (4.20-5.40) 10^6/uL Hgb (12.0-16.0) g/dL Hct (36.0-48.0) % MCV (81.0-99.0) fL MCH (26.7-34.0) pg MCHC (29.9-35.2) g/dL RDW (11.0-15.0) % Plt Count (150-450) 10^3/uL MPV (9.5-13.5) fL Neut % (Auto) (43.0-75.0) % Lymph % (Auto) (20.5-60.0) % [place] % (Auto) (1.7-12.0) % Eos % (Auto) (0.9-7.0) % Baso % (Auto) (0.2-2.0) % Neut # (Auto) (1.4-6.5) 10^3/uL Lymph # (Auto) (1.2-3.8) 10^3/uL [place] # (Auto) (0.3-0.8) 10^3/uL Eos # (Auto) (0.0-0.7) 10^3/uL Baso # (Auto) (0.0-0.1) 10^3/uL Abs Immat Gran (auto) (0.00-0.03) 10^3/uL Imm/Tot Granulo (auto) (0.0-0.5) % PT (9.0-11.6) sec INR APTT (22.3-36.2) sec Puncture Site ABG pH 7.210 L* (7.350-7.450) ABG pCO2 51.2 H* (35.0-45.0) mmHg ABG pO2 63.5 L (80.0-100.0) mmHg ABG HCO3 20.5 L (22.0-26.0) mmol/L ABG O2 Saturation 88.2 % ABG Base Excess -7.4 L (-2.0-2.0) mmol/L Bryan Test Positive (POSITIVE) FiO2 100 % BiPAP 1618 Sodium (136-145) mmol/L Potassium (3.5-5.1) mmol/L Chloride (98-107) mmol/L Carbon Dioxide (21.0-32.0) mmol/L Anion Gap BUN (7.0-18.0) mg/dL Creatinine (0.55-1.02) mg/dL Est GFR ( Amer) (>=60) Est GFR (Non-Af Amer) (>=60) BUN/Creatinine Ratio Glucose (74-106) mg/dL Lactate 7.1 H* (0.4-2.0) mmol/L Calcium (8.5-10.1) mg/dL Magnesium 2.5 H (1.8-2.4) mg/dL Troponin I High Sens (4.0-51.3) pg/mL NT-Pro-B Natriuret Pep (<=900.0) pg/mL Vancomycin Trough (5.0-20.0) ug/mL Adenovirus (PCR) (NOT DETECTE) C. pneumoniae DNA (PCR) (NOT DETECTE) Coronavirus Type OC43 (NOT DETECTE) Coronavirus Type HKU1 (NOT DETECTE) Coronavirus Type 229E (NOT DETECTE) Coronavirus Type NL63 (NOT DETECTE) Human Metapneumovir PCR (NOT DETECTE) M. pneumoniae (PCR) (NOT DETECTE) Parainfluenza PCR (NOT DETECTE) Parainfluenza 2 (PCR) (NOT DETECTE) Parainfluenza 3 (PCR) (NOT DETECTE) Parainfluenza 4 (PCR) (NOT DETECTE) RSV (RT-PCR) (NOT DETECTE) Entero/Rhino (PCR) (NOT DETECTE) SARS-CoV-2 (PCR) (NOT DETECTE) Bordetella pertussis (PCR) (NOT DETECTE) B parapertussis DNA PCR (NOT DETECTE) Influenza Type A (PCR) (NOT DETECTE) Influenza Type B (PCR) (NOT DETECTE) Imaging Data Chest x-ray: Radiologist's impression: EXAMINATION: XR chest 1V HISTORY: SOB COMPARISON: Multiple prior exams TECHNIQUE: Portable performed at 958 FINDINGS: LUNGS: Endotracheal tube tip is 1.9 cm above the chaka. Marked diffuse bilateral parenchymal infiltrates partially obscuring the hemidiaphragms and heart borders, improved from the previous exam. VASCULATURE: No increased pulmonary vasculature. PLEURA: No pneumothorax, effusion, or pleural thickening. CARDIAC: No cardiomegaly or cardiac silhouette abnormality. Valve replacement MEDIASTINUM: No visible mass or adenopathy. Median sternotomy wires. Left pacemaker. BONES: No fracture or visible bone lesion. OTHER: Findings discussed with Dr. mccormack 10:09 AM. IMPRESSION: Endotracheal tube tip 1.9 cm above the chaka Diffuse bilateral parenchymal infiltrates, slightly improved. Pulmonary edema favored Electronically authenticated by: CHACHA LOPES Date: 01/11/2023 10:11 Critical Care Time Critical Care Time Critical Care Time: Yes Total Critical Care Time: 85 Attestation: Critical care time >85 minutes exclusive from separate billable procedures that were performed. The following was considered in the determination of critical care but not limited to the level of medical decision making, intensive cardiac and/or respiratory monitoring, frequent vital sign monitoring, evaluation of laboratory studies, evaluation of radiographic studies, oxygen monitoring, and constant monitoring and speaking to family at bedside Discharge Plan Discharge Chief Complaint: Shortness of Breath/Dyspnea Clinical Impression: COPD exacerbation, Respiratory failure, Sepsis, Pulmonary edema Pneumonia Qualifiers: Laterality: bilateral Patient Disposition: [facility] Time of Disposition Decision: 11:35 Discharge Location: [facility] Discharge location: [facility], Dr. Arzate accepting Emergency Room physician Condition: Critical Mode of Transportation: [facility] Discharge Date/Time: 01/11/23 12:31
[2023-01-11 10:37] LABS: Lactate/Lactic Acid 7.1 mmol/L (0.4-2.0)
--- NOTE | 2023-01-11 13:39 | RESP.RT ---
Pt placed on vent but did not tolerate due to pulmonary edema/secretions. Pt then manually ventilated per PPV with PEEP 15 and also suctioned for copious amount pink frothy secretions, until [facility] arrived and pt transferred.
[2023-01-11 18:55] LABS: A. calcoaceticus-baumannii Cpx NOT DETECTED (NOT DETECTE); Bacteroides fragilis NOT DETECTED (NOT DETECTE); Candida albicans NOT DETECTED (NOT DETECTE); Candida auris NOT DETECTED (NOT DETECTE); Candida glabrata NOT DETECTED (NOT DETECTE); Candida krusei NOT DETECTED (NOT DETECTE); Candida parapsilosis NOT DETECTED (NOT DETECTE); Candida tropicalis NOT DETECTED (NOT DETECTE); Cryptococcus neoformans/gattii NOT DETECTED (NOT DETECTE); Enterobacter cloacae complex NOT DETECTED (NOT DETECTE); Enterobacterales NOT DETECTED (NOT DETECTE); Enterococcus faecalis NOT DETECTED (NOT DETECTE); Enterococcus faecium NOT DETECTED (NOT DETECTE); Haemophilus influenzae NOT DETECTED (NOT DETECTE); Klebsiella aerogenes NOT DETECTED (NOT DETECTE); Klebsiella pneumoniae group NOT DETECTED (NOT DETECTE); Listeria monocytogenes NOT DETECTED (NOT DETECTE); Neisseria meningitidis NOT DETECTED (NOT DETECTE); Proteus spp. NOT DETECTED (NOT DETECTE); Pseudomonas aeruginosa NOT DETECTED (NOT DETECTE); Salmonella spp. NOT DETECTED (NOT DETECTE); Serratia marcescens NOT DETECTED (NOT DETECTE); Staphylococcus lugdunensis NOT DETECTED (NOT DETECTE); Stenotrophomonas maltophilia NOT DETECTED (NOT DETECTE); Streptococcus agalactiae NOT DETECTED (NOT DETECTE); Streptococcus pneumoniae NOT DETECTED (NOT DETECTE); Streptococcus pyogenes NOT DETECTED (NOT DETECTE); Streptococcus spp. NOT DETECTED (NOT DETECTE)
[2023-01-11 20:30] LABS: Staphylococcus spp. DETECTED (NOT DETECTE); mecA/C DETECTED (NOT DETECTE)
[2023-01-11 20:31] LABS: Staphylococcus epidermidis DETECTED (NOT DETECTE)
--- NOTE | 2023-01-11 20:55 | PC.NURSE ---
Poss Blood culture results called to 's MALLIKA Bird taking care of pt at the current time. Results also faxed to MALLIKA Bird at [phone]
== END 2023-01-11 12:31 | disposition short-term general hospital (02) ==
PROVIDERS: Family Medicine; Emergency Provider Emergency Medicine
DX: A41.9 Sepsis, unspecified organism (principal); J44.1 Chronic obstructive pulmonary disease with (acute) exacerbation; J96.91 Respiratory failure, unspecified with hypoxia; J81.1 Chronic pulmonary edema
CPT/HCPCS: 0202U; 31500; 31720; 36415; 36600; 71045; 80048; 80202; 82805; 83605; 83735; 83880; 84484; 85025; 85610; 85730; 87040; 87070; 87150; 87186; 93005; 94002; 94640; 94660; 96365; 96375; 99291; 99292; J2704; J2920; J3370